=== PATIENT | female | born 1945 | race Caucasian/White ===

== ENCOUNTER 2020-01-11 22:32 | Inpatient (IN) ==
[2020-01-12] MEDS ORDERED: Ondansetron 4 MG/2 ML VIAL IVP PRN (03:18)
[2020-01-12] MEDS ORDERED: Naloxone 0.4 MG/ML INJ IVP PRN (03:18)
[2020-01-12] MEDS ORDERED: Dexamethasone 4 MG/ML VIAL IVP SCH (03:21)
[2020-01-12] MEDS ORDERED: Dextrose Gel 15 GM/37.5 ML TUBE PO PRN ×2 (04:00)
[2020-01-12] MEDS ORDERED: *HR* Dextrose 50 % in Water (Vial) 50 ML VIAL IVP PRN (04:00)
[2020-01-12] MEDS ORDERED: D5% in Water 1,000 ML IVC PRN (04:00)
[2020-01-12] MEDS: Ipratropium 1 PUFF INHALER IH SCH ×5 (04:21→19:43)
[2020-01-12] MEDS: Azithromycin 500 MG in 0.9 % Sodium Chloride 250 ML IVPB SCH (04:41)
[2020-01-12] MEDS: Furosemide 40 MG/4 ML VIAL IVP SCH ×2 (04:41→18:04)
[2020-01-12 04:43] LABS: Hematocrit 39.1 % (35.3-44.9); Hemoglobin 12.5 g/dL (11.5-15.4); Mean Corpuscular Hemoglobin 30.3 pg (28.0-33.3); Mean Corpuscular Volume 94.7 fL (83.0-100.0); Monocytes # 0.3 K/mcL (0.0-1.3); Platelet Count 238 K/mcL (140-400); Red Blood Count 4.13 M/mcL (3.82-4.97); Red Cell Distribution Width 14.4 % (11.5-14.5); White Blood Count 8.5 K/mcL (4.3-11.1)
[2020-01-12 04:55] LABS: INR 1.2; Prothrombin Time 13.3 Seconds (9.4-12.1)
[2020-01-12 04:59] LABS: BUN/Creatinine Ratio 28 (6-26); Blood Urea Nitrogen 21 mg/dL (8-23); Calcium 8.4 mg/dL (8.6-10.3); Carbon Dioxide 25 mEq/L (23-29); Chloride 104 mEq/L (98-107); Glucose 217 mg/dL (70-105); Magnesium 1.9 mg/dL (1.6-2.6); Osmolality,Calculated 296 (280-300); Sodium 138 mEq/L (136-145); eGFR For African Americans > 60 (> 60); eGFR For Non-African Americans > 60 (> 60)
[2020-01-12 05:10] LABS: Alanine Aminotransferase 44 Units/L (7-52); Albumin 3.1 g/dL (3.5-5.7); Alkaline Phosphatase 42 Units/L (34-104); Aspartate Amino Transferase 32 Units/L (13-39); Bilirubin,Direct 0.2 mg/dL (0.0-0.2); Bilirubin,Indirect 0.4 mg/dL (0.0-1.0); Bilirubin,Total 0.6 mg/dL (0.3-1.0); Globulin 3.1 g/dL (2.4-3.5); Total Protein 6.2 g/dL (6.4-8.9)
[2020-01-12 05:29] LABS: Lymphocytes # 0.5 K/mcL (0.6-4.6); Neutrophils # 7.5 K/mcL (1.6-8.9); Platelet Estimate Normal (Normal)
[2020-01-12] MEDS ORDERED: *HR* Enoxaparin 40 MG/0.4 ML SYRINGE SQ SCH (07:00)
[2020-01-12] MEDS: Insulin LISPRO 300 UNITS/3 ML VIAL SQ SCH ×4 (08:00→22:30)
[2020-01-12] MEDS: cefTRIAXone 1,000 MG in Water for inj. (sterile) 10 ML IVP SCH (08:01)
[2020-01-12 10:19] LABS: C-Reactive Protein 196 mg/L (Less than 10); Lactate Dehydrogenase 271 Units/L (140-271)
[2020-01-12 10:37] LABS: Ferritin 261 ng/mL (10-120)
[2020-01-12] MEDS: Dexamethasone Sodium Phos/PF 10 MG/ML VIAL IVP SCH (11:37)
[2020-01-12] MEDS ORDERED: 0.9 % Sodium Chloride 250 ML ONE (16:00)
[2020-01-12] MEDS ORDERED: Famotidine 20 MG TABLET PO PRN (16:54)
[2020-01-12] MEDS ORDERED: Acetaminophen 325 MG TABLET PO PRN (17:31)
[2020-01-12] MEDS: *HR* Enoxaparin 40 MG/0.4 ML SYRINGE SQ SCH (18:04)
[2020-01-12] MEDS: Budesonide/Formoterol 160/4.5 1 PUFF INH IH SCH (19:43)
[2020-01-12] MEDS: QUEtiapine Fumarate 100 MG TABLET PO SCH (20:06)
[2020-01-12] MEDS: *HR* LORazepam 0.5 MG TABLET PO SCH (20:07)
[2020-01-12] MEDS: GuaiFENesin/Dextromethorphan TABLET PO SCH (20:08)
[2020-01-12] MEDS: Pregabalin 75 MG CAPSULE PO SCH (20:08)
[2020-01-12] MEDS: traZODone 50 MG TABLET PO SCH (20:08)
[2020-01-13] MEDS: Ipratropium 1 PUFF INHALER IH SCH ×7 (00:01→23:59)
[2020-01-13] MEDS: Azithromycin 500 MG in 0.9 % Sodium Chloride 250 ML IVPB SCH (04:04)
[2020-01-13] MEDS: *HR* Enoxaparin 40 MG/0.4 ML SYRINGE SQ SCH ×2 (05:07→16:42)
[2020-01-13] MEDS: Budesonide/Formoterol 160/4.5 1 PUFF INH IH SCH ×2 (07:48→20:16)
[2020-01-13 07:50] LABS: Basophils # 0.1 K/mcL (0.0-0.2); Basophils % 0.7 %; Eosinophils % 0.2 %; Hematocrit 38.1 % (35.3-44.9); Hemoglobin 11.9 g/dL (11.5-15.4); Immature Granulocytes % 3.2 % (0-4); Lymphocytes # 1.6 K/mcL (0.6-4.6); Lymphocytes % 15.6 %; Mean Corpuscular HGB Conc 31.2 g/dL (31.6-35.5); Mean Corpuscular Hemoglobin 29.6 pg (28.0-33.3); Mean Corpuscular Volume 94.8 fL (83.0-100.0); Mean Platelet Volume 10.1 fL (9.4-12.4); Monocytes # 0.4 K/mcL (0.0-1.3); Monocytes % 3.7 %; Neutrophils # 7.7 K/mcL (1.6-8.9); Platelet Count 261 K/mcL (140-400); Red Blood Count 4.02 M/mcL (3.82-4.97); Red Cell Distribution Width 14.4 % (11.5-14.5); Segmented Neutrophils % 76.6 %; White Blood Count 10.1 K/mcL (4.3-11.1)
[2020-01-13] MEDS: Aspirin Enteric Coated 81 MG Tablet PO SCH (08:02)
[2020-01-13] MEDS: GuaiFENesin/Dextromethorphan TABLET PO SCH ×2 (08:02→20:10)
[2020-01-13] MEDS: Cyanocobalamin (B-12) 1,000 MCG TABLET PO SCH (08:02)
[2020-01-13] MEDS: Cholecalciferol (D-3) 1,000 UNIT (25MCG) TABLET PO SCH (08:02)
[2020-01-13] MEDS: modafiniL 100 MG TABLET PO SCH (08:03)
[2020-01-13] MEDS: Venlafaxine XR (24 HR) 37.5 MG CAP.ER.24H PO SCH (08:03)
[2020-01-13] MEDS: Venlafaxine XR (24 HR) 150 MG CAP.ER.24H PO SCH (08:04)
[2020-01-13] MEDS: *HR* LORazepam 0.5 MG TABLET PO SCH ×3 (08:05→20:13)
[2020-01-13] MEDS: Loratadine 10 MG TABLET PO SCH (08:05)
[2020-01-13] MEDS: Dexamethasone Sodium Phos/PF 10 MG/ML VIAL IVP SCH (08:07)
[2020-01-13] MEDS: Furosemide 40 MG/4 ML VIAL IVP SCH ×2 (08:09→16:39)
[2020-01-13] MEDS: cefTRIAXone 1,000 MG in Water for inj. (sterile) 10 ML IVP SCH (08:09)
[2020-01-13] MEDS: Pregabalin 75 MG CAPSULE PO SCH ×2 (08:12→20:10)
[2020-01-13] MEDS: Insulin LISPRO 300 UNITS/3 ML VIAL SQ SCH ×4 (08:13→20:12)
[2020-01-13] MEDS: Insulin DETEMIR 100 UNIT/ML X5UNITS SQ SCH (08:25)
[2020-01-13 08:30] LABS: Ferritin 271 ng/mL (10-120)
[2020-01-13 08:56] LABS: Alanine Aminotransferase 43 Units/L (7-52); Albumin 3.1 g/dL (3.5-5.7); Albumin/Globulin Ratio 0.9 (1.1-2.2); Alkaline Phosphatase 40 Units/L (34-104); Aspartate Amino Transferase 33 Units/L (13-39); BUN/Creatinine Ratio 33 (6-26); Bilirubin,Total 0.6 mg/dL (0.3-1.0); Blood Urea Nitrogen 28 mg/dL (8-23); Calcium 8.9 mg/dL (8.6-10.3); Carbon Dioxide 30 mEq/L (23-29); Chloride 103 mEq/L (98-107); Globulin 3.3 g/dL (2.4-3.5); Glucose 102 mg/dL (70-105); Lactate Dehydrogenase 250 Units/L (140-271); Magnesium 2.1 mg/dL (1.6-2.6); Osmolality,Calculated 302 (280-300); Phosphorous 4.1 mg/dL (2.7-4.5); Potassium 3.4 mEq/L (3.5-5.1); Sodium 143 mEq/L (136-145); Total Protein 6.4 g/dL (6.4-8.9); eGFR For African Americans > 60 (> 60); eGFR For Non-African Americans > 60 (> 60)
[2020-01-13] MEDS ORDERED: (Mirabegron [Myrbetriq] 25 MG) PO SCH (09:00)
[2020-01-13 09:16] LABS: Estimated Average Glucose 157 mg/dl
[2020-01-13 09:27] LABS: C-Reactive Protein 128 mg/L (Less than 10)
[2020-01-13] MEDS ORDERED: 0.9 % Sodium Chloride 250 ML ONE (13:36)
[2020-01-13] MEDS: traZODone 50 MG TABLET PO SCH (20:10)
[2020-01-13] MEDS: QUEtiapine Fumarate 100 MG TABLET PO SCH (20:10)
[2020-01-14] MEDS: Ipratropium 1 PUFF INHALER IH SCH ×5 (03:38→20:06)
[2020-01-14 04:44] LABS: Basophils # 0.1 K/mcL (0.0-0.2); Basophils % 0.6 %; Hemoglobin 11.9 g/dL (11.5-15.4); Immature Granulocytes % 3.6 % (0-4); Lymphocytes # 0.8 K/mcL (0.6-4.6); Lymphocytes % 9.4 %; Mean Corpuscular HGB Conc 32.2 g/dL (31.6-35.5); Mean Corpuscular Hemoglobin 30.6 pg (28.0-33.3); Mean Corpuscular Volume 95.1 fL (83.0-100.0); Mean Platelet Volume 9.6 fL (9.4-12.4); Monocytes # 0.5 K/mcL (0.0-1.3); Monocytes % 5.5 %; Neutrophils # 6.8 K/mcL (1.6-8.9); Platelet Count 286 K/mcL (140-400); Red Blood Count 3.89 M/mcL (3.82-4.97); Red Cell Distribution Width 14.2 % (11.5-14.5); Segmented Neutrophils % 80.9 %; White Blood Count 8.4 K/mcL (4.3-11.1)
[2020-01-14] MEDS: *HR* Enoxaparin 40 MG/0.4 ML SYRINGE SQ SCH ×2 (05:08→16:27)
[2020-01-14 05:09] LABS: Alanine Aminotransferase 44 Units/L (7-52); Albumin 3.4 g/dL (3.5-5.7); Albumin/Globulin Ratio 0.9 (1.1-2.2); Alkaline Phosphatase 43 Units/L (34-104); Aspartate Amino Transferase 26 Units/L (13-39); BUN/Creatinine Ratio 38 (6-26); Bilirubin,Total 0.5 mg/dL (0.3-1.0); Blood Urea Nitrogen 35 mg/dL (8-23); C-Reactive Protein 116 mg/L (Less than 10); Calcium 8.9 mg/dL (8.6-10.3); Carbon Dioxide 31 mEq/L (23-29); Chloride 99 mEq/L (98-107); Globulin 3.6 g/dL (2.4-3.5); Glucose 175 mg/dL (70-105); Lactate Dehydrogenase 210 Units/L (140-271); Magnesium 2.2 mg/dL (1.6-2.6); Osmolality,Calculated 300 (280-300); Phosphorous 4.2 mg/dL (2.7-4.5); Potassium 3.8 mEq/L (3.5-5.1); Sodium 139 mEq/L (136-145); eGFR For African Americans > 60 (> 60); eGFR For Non-African Americans > 60 (> 60)
[2020-01-14 05:18] LABS: Ferritin 260 ng/mL (10-120)
[2020-01-14] MEDS: Aspirin Enteric Coated 81 MG Tablet PO SCH (08:00)
[2020-01-14] MEDS: GuaiFENesin/Dextromethorphan TABLET PO SCH ×2 (08:01→20:11)
[2020-01-14] MEDS: Venlafaxine XR (24 HR) 37.5 MG CAP.ER.24H PO SCH (08:01)
[2020-01-14] MEDS: Cyanocobalamin (B-12) 1,000 MCG TABLET PO SCH (08:01)
[2020-01-14] MEDS: Venlafaxine XR (24 HR) 150 MG CAP.ER.24H PO SCH (08:01)
[2020-01-14] MEDS: Cholecalciferol (D-3) 1,000 UNIT (25MCG) TABLET PO SCH (08:02)
[2020-01-14] MEDS: Loratadine 10 MG TABLET PO SCH (08:03)
[2020-01-14] MEDS: Pregabalin 75 MG CAPSULE PO SCH ×2 (08:03→20:12)
[2020-01-14] MEDS: modafiniL 100 MG TABLET PO SCH (08:03)
[2020-01-14] MEDS: *HR* LORazepam 0.5 MG TABLET PO SCH ×3 (08:03→20:12)
[2020-01-14] MEDS: Dexamethasone Sodium Phos/PF 10 MG/ML VIAL IVP SCH (08:04)
[2020-01-14] MEDS: Budesonide/Formoterol 160/4.5 1 PUFF INH IH SCH ×2 (08:05→20:07)
[2020-01-14] MEDS: Insulin LISPRO 300 UNITS/3 ML VIAL SQ SCH ×4 (08:05→21:29)
[2020-01-14] MEDS: Insulin DETEMIR 100 UNIT/ML X5UNITS SQ SCH (08:14)
[2020-01-14] MEDS: Furosemide 40 MG/4 ML VIAL IVP SCH (08:16)
[2020-01-14] MEDS ORDERED: polyethylene glycoL 3350 17 GM POWD.PACK PO PRN (16:55)
[2020-01-14] MEDS: QUEtiapine Fumarate 100 MG TABLET PO SCH (20:12)
[2020-01-14] MEDS: traZODone 50 MG TABLET PO SCH (20:12)
[2020-01-15] MEDS: Ipratropium 1 PUFF INHALER IH SCH ×7 (00:10→23:33)
[2020-01-15] MEDS: *HR* Enoxaparin 40 MG/0.4 ML SYRINGE SQ SCH ×2 (05:17→16:17)
[2020-01-15] MEDS: Budesonide/Formoterol 160/4.5 1 PUFF INH IH SCH ×2 (08:12→20:23)
[2020-01-15] MEDS: Insulin LISPRO 300 UNITS/3 ML VIAL SQ SCH ×4 (09:40→21:08)
[2020-01-15] MEDS: Cholecalciferol (D-3) 1,000 UNIT (25MCG) TABLET PO SCH (09:47)
[2020-01-15] MEDS: Aspirin Enteric Coated 81 MG Tablet PO SCH (09:47)
[2020-01-15] MEDS: Pregabalin 75 MG CAPSULE PO SCH ×2 (09:49→21:02)
[2020-01-15] MEDS: GuaiFENesin/Dextromethorphan TABLET PO SCH ×2 (09:49→21:01)
[2020-01-15] MEDS: Cyanocobalamin (B-12) 1,000 MCG TABLET PO SCH (09:49)
[2020-01-15] MEDS: *HR* LORazepam 0.5 MG TABLET PO SCH ×3 (09:49→21:02)
[2020-01-15] MEDS: Loratadine 10 MG TABLET PO SCH (09:49)
[2020-01-15] MEDS: Venlafaxine XR (24 HR) 37.5 MG CAP.ER.24H PO SCH (09:49)
[2020-01-15] MEDS: Venlafaxine XR (24 HR) 150 MG CAP.ER.24H PO SCH (09:51)
[2020-01-15] MEDS: Furosemide 40 MG/4 ML VIAL IVP SCH (09:52)
[2020-01-15] MEDS: Dexamethasone Sodium Phos/PF 10 MG/ML VIAL IVP SCH (09:52)
[2020-01-15] MEDS: Insulin DETEMIR 100 UNIT/ML X5UNITS SQ SCH (09:54)
[2020-01-15] MEDS: modafiniL 100 MG TABLET PO SCH (09:54)
[2020-01-15 17:10] LABS: Basophils # 0.1 K/mcL (0.0-0.2); Basophils % 0.4 %; Hematocrit 40.1 % (35.3-44.9); Immature Granulocytes % 2.9 % (0-4); Lymphocytes # 0.6 K/mcL (0.6-4.6); Lymphocytes % 4.2 %; Mean Corpuscular HGB Conc 32.4 g/dL (31.6-35.5); Mean Corpuscular Hemoglobin 30.3 pg (28.0-33.3); Mean Corpuscular Volume 93.5 fL (83.0-100.0); Mean Platelet Volume 9.8 fL (9.4-12.4); Monocytes # 0.3 K/mcL (0.0-1.3); Monocytes % 2.1 %; Neutrophils # 12.3 K/mcL (1.6-8.9); Platelet Count 352 K/mcL (140-400); Red Blood Count 4.29 M/mcL (3.82-4.97); Red Cell Distribution Width 14.1 % (11.5-14.5); Segmented Neutrophils % 90.4 %
[2020-01-15 17:11] LABS: White Blood Count 13.6 K/mcL (4.3-11.1)
[2020-01-15 17:26] LABS: BUN/Creatinine Ratio 40 (6-26); Blood Urea Nitrogen 38 mg/dL (8-23); Calcium 9.4 mg/dL (8.6-10.3); Carbon Dioxide 29 mEq/L (23-29); Chloride 96 mEq/L (98-107); Glucose 288 mg/dL (70-105); Osmolality,Calculated 300 (280-300); Potassium 4.6 mEq/L (3.5-5.1); Sodium 135 mEq/L (136-145); eGFR For African Americans > 60 (> 60); eGFR For Non-African Americans 57 (> 60)
[2020-01-15] MEDS: traZODone 50 MG TABLET PO SCH (21:01)
[2020-01-15] MEDS: QUEtiapine Fumarate 100 MG TABLET PO SCH (21:02)
[2020-01-16] MEDS: Ipratropium 1 PUFF INHALER IH SCH ×6 (03:52→23:29)
[2020-01-16 04:50] LABS: Hematocrit 38.3 % (35.3-44.9); Hemoglobin 12.6 g/dL (11.5-15.4); Mean Corpuscular HGB Conc 32.9 g/dL (31.6-35.5); Mean Corpuscular Volume 94.3 fL (83.0-100.0); Mean Platelet Volume 9.8 fL (9.4-12.4); Platelet Count 329 K/mcL (140-400); Red Blood Count 4.06 M/mcL (3.82-4.97); White Blood Count 10.5 K/mcL (4.3-11.1)
[2020-01-16 04:56] LABS: BUN/Creatinine Ratio 41 (6-26); Blood Urea Nitrogen 34 mg/dL (8-23); Calcium 9.5 mg/dL (8.6-10.3); Carbon Dioxide 28 mEq/L (23-29); Chloride 102 mEq/L (98-107); Glucose 120 mg/dL (70-105); Osmolality,Calculated 295 (280-300); Potassium 4.2 mEq/L (3.5-5.1); Sodium 138 mEq/L (136-145); eGFR For African Americans > 60 (> 60); eGFR For Non-African Americans > 60 (> 60)
[2020-01-16] MEDS: *HR* Enoxaparin 40 MG/0.4 ML SYRINGE SQ SCH ×2 (05:41→18:04)
[2020-01-16] MEDS: Budesonide/Formoterol 160/4.5 1 PUFF INH IH SCH ×2 (08:35→19:57)
[2020-01-16] MEDS: GuaiFENesin/Dextromethorphan TABLET PO SCH ×2 (08:36→20:16)
[2020-01-16] MEDS: Cyanocobalamin (B-12) 1,000 MCG TABLET PO SCH (08:36)
[2020-01-16] MEDS: Aspirin Enteric Coated 81 MG Tablet PO SCH (08:36)
[2020-01-16] MEDS: Pregabalin 75 MG CAPSULE PO SCH ×2 (08:36→20:17)
[2020-01-16] MEDS: Venlafaxine XR (24 HR) 150 MG CAP.ER.24H PO SCH (08:37)
[2020-01-16] MEDS: Venlafaxine XR (24 HR) 37.5 MG CAP.ER.24H PO SCH (08:37)
[2020-01-16] MEDS: *HR* LORazepam 0.5 MG TABLET PO SCH ×3 (08:37→20:18)
[2020-01-16] MEDS: Loratadine 10 MG TABLET PO SCH (08:37)
[2020-01-16] MEDS: Cholecalciferol (D-3) 1,000 UNIT (25MCG) TABLET PO SCH (08:37)
[2020-01-16] MEDS: Dexamethasone Sodium Phos/PF 10 MG/ML VIAL IVP SCH (08:38)
[2020-01-16] MEDS: Insulin DETEMIR 100 UNIT/ML X5UNITS SQ SCH (08:43)
[2020-01-16] MEDS: Insulin LISPRO 300 UNITS/3 ML VIAL SQ SCH ×4 (08:46→21:48)
[2020-01-16] MEDS: modafiniL 100 MG TABLET PO SCH (08:48)
[2020-01-16] MEDS ORDERED: Furosemide 20 MG TABLET PO SCH (09:00)
[2020-01-16] MEDS: Menthol 9.1 MG LOZENGE PO PRN (14:51)
[2020-01-16] MEDS: traZODone 50 MG TABLET PO SCH (20:16)
[2020-01-16] MEDS: QUEtiapine Fumarate 100 MG TABLET PO SCH (20:16)
[2020-01-16 22:42] LABS: Adenovirus Not Detected (Not Detect); Coronavirus 229E Not Detected (Not Detect); Coronavirus HKU1 Not Detected (Not Detect); Coronavirus NL63 Not Detected (Not Detect); Coronavirus OC43 Not Detected (Not Detect)
[2020-01-16 22:44] LABS: Bordetella Pertussis Not Detected (Not Detect); Chlamydophila pneumoniae Not Detected (Not Detect); Human Metapneumovirus Not Detected (Not Detect); Human Rhinovirus/Enterovirus Not Detected (Not Detect); Influenza A Subtype 2009 H1 Not Detected (Not Detect); Influenza B Not Detected (Not Detect); Mycoplasma pneumoniae Not Detected (Not Detect); Parainfluenza Virus 1 Not Detected (Not Detect); Parainfluenza Virus 2 Not Detected (Not Detect); Parainfluenza Virus 3 Not Detected (Not Detect); Parainfluenza Virus 4 Not Detected (Not Detect); Respiratory Syncytial Virus Not Detected (Not Detect); SARS-CoV-2 DETECTED (Not Detect)
[2020-01-17] MEDS: Ipratropium 1 PUFF INHALER IH SCH ×6 (03:40→23:20)
[2020-01-17] MEDS: *HR* Enoxaparin 40 MG/0.4 ML SYRINGE SQ SCH ×2 (05:32→16:24)
[2020-01-17 06:39] LABS: Hemoglobin 12.7 g/dL (11.5-15.4); Mean Corpuscular HGB Conc 31.8 g/dL (31.6-35.5); Mean Corpuscular Hemoglobin 30.7 pg (28.0-33.3); Mean Corpuscular Volume 96.6 fL (83.0-100.0); Mean Platelet Volume 9.9 fL (9.4-12.4); Platelet Count 341 K/mcL (140-400); Red Blood Count 4.14 M/mcL (3.82-4.97); Red Cell Distribution Width 14.3 % (11.5-14.5); White Blood Count 11.3 K/mcL (4.3-11.1)
[2020-01-17 06:59] LABS: BUN/Creatinine Ratio 41 (6-26); Blood Urea Nitrogen 35 mg/dL (8-23); Calcium 9.3 mg/dL (8.6-10.3); Carbon Dioxide 27 mEq/L (23-29); Chloride 102 mEq/L (98-107); Glucose 131 mg/dL (70-105); Magnesium 2.3 mg/dL (1.6-2.6); Osmolality,Calculated 296 (280-300); Potassium 3.8 mEq/L (3.5-5.1); Sodium 138 mEq/L (136-145); eGFR For African Americans > 60 (> 60); eGFR For Non-African Americans > 60 (> 60)
[2020-01-17] MEDS: Insulin LISPRO 300 UNITS/3 ML VIAL SQ SCH ×4 (07:30→21:08)
[2020-01-17] MEDS: Dexamethasone Sodium Phos/PF 10 MG/ML VIAL IVP SCH (07:40)
[2020-01-17] MEDS: Insulin DETEMIR 100 UNIT/ML X5UNITS SQ SCH (07:40)
[2020-01-17] MEDS: Venlafaxine XR (24 HR) 150 MG CAP.ER.24H PO SCH (07:41)
[2020-01-17] MEDS: GuaiFENesin/Dextromethorphan TABLET PO SCH ×2 (07:41→20:10)
[2020-01-17] MEDS: Cholecalciferol (D-3) 1,000 UNIT (25MCG) TABLET PO SCH (07:41)
[2020-01-17] MEDS: modafiniL 100 MG TABLET PO SCH (07:41)
[2020-01-17] MEDS: Furosemide 20 MG TABLET PO SCH (07:41)
[2020-01-17] MEDS: Venlafaxine XR (24 HR) 37.5 MG CAP.ER.24H PO SCH (07:42)
[2020-01-17] MEDS: Pregabalin 75 MG CAPSULE PO SCH ×2 (07:42→20:10)
[2020-01-17] MEDS: Aspirin Enteric Coated 81 MG Tablet PO SCH (07:42)
[2020-01-17] MEDS: Loratadine 10 MG TABLET PO SCH (07:42)
[2020-01-17] MEDS: Cyanocobalamin (B-12) 1,000 MCG TABLET PO SCH (07:42)
[2020-01-17] MEDS: *HR* LORazepam 0.5 MG TABLET PO SCH ×3 (07:42→20:10)
[2020-01-17] MEDS: Budesonide/Formoterol 160/4.5 1 PUFF INH IH SCH ×2 (08:21→20:14)
[2020-01-17] MEDS: Menthol 9.1 MG LOZENGE PO PRN (12:45)
[2020-01-17] MEDS: traZODone 50 MG TABLET PO SCH (20:10)
[2020-01-17] MEDS: QUEtiapine Fumarate 100 MG TABLET PO SCH (20:10)
[2020-01-18] MEDS: Ipratropium 1 PUFF INHALER IH SCH ×5 (03:38→20:11)
[2020-01-18] MEDS: *HR* Enoxaparin 40 MG/0.4 ML SYRINGE SQ SCH ×2 (05:10→17:45)
[2020-01-18] MEDS: Budesonide/Formoterol 160/4.5 1 PUFF INH IH SCH ×2 (07:37→20:11)
[2020-01-18] MEDS: Dexamethasone Sodium Phos/PF 10 MG/ML VIAL IVP SCH (08:08)
[2020-01-18] MEDS: Cholecalciferol (D-3) 1,000 UNIT (25MCG) TABLET PO SCH (08:09)
[2020-01-18] MEDS: Venlafaxine XR (24 HR) 37.5 MG CAP.ER.24H PO SCH (08:09)
[2020-01-18] MEDS: Pregabalin 75 MG CAPSULE PO SCH ×2 (08:09→22:22)
[2020-01-18] MEDS: GuaiFENesin/Dextromethorphan TABLET PO SCH ×2 (08:10→22:21)
[2020-01-18] MEDS: modafiniL 100 MG TABLET PO SCH (08:10)
[2020-01-18] MEDS: Venlafaxine XR (24 HR) 150 MG CAP.ER.24H PO SCH (08:10)
[2020-01-18] MEDS: Furosemide 20 MG TABLET PO SCH (08:10)
[2020-01-18] MEDS: Aspirin Enteric Coated 81 MG Tablet PO SCH (08:11)
[2020-01-18] MEDS: Loratadine 10 MG TABLET PO SCH (08:11)
[2020-01-18] MEDS: Cyanocobalamin (B-12) 1,000 MCG TABLET PO SCH (08:11)
[2020-01-18] MEDS: *HR* LORazepam 0.5 MG TABLET PO SCH ×3 (08:12→22:21)
[2020-01-18] MEDS: Insulin DETEMIR 100 UNIT/ML X5UNITS SQ SCH (08:14)
[2020-01-18] MEDS: Insulin LISPRO 300 UNITS/3 ML VIAL SQ SCH ×4 (08:38→22:18)
[2020-01-18 12:21] LABS: Hematocrit 43.6 % (35.3-44.9); Hemoglobin 13.6 g/dL (11.5-15.4); Mean Corpuscular HGB Conc 31.2 g/dL (31.6-35.5); Mean Corpuscular Hemoglobin 29.8 pg (28.0-33.3); Mean Corpuscular Volume 95.6 fL (83.0-100.0); Mean Platelet Volume 10.1 fL (9.4-12.4); Platelet Count 383 K/mcL (140-400); Red Blood Count 4.56 M/mcL (3.82-4.97); Red Cell Distribution Width 14.5 % (11.5-14.5)
[2020-01-18 12:22] LABS: White Blood Count 17.2 K/mcL (4.3-11.1)
[2020-01-18 12:39] LABS: BUN/Creatinine Ratio 40 (6-26); Blood Urea Nitrogen 38 mg/dL (8-23); Calcium 9.4 mg/dL (8.6-10.3); Carbon Dioxide 28 mEq/L (23-29); Chloride 98 mEq/L (98-107); Glucose 184 mg/dL (70-105); Osmolality,Calculated 294 (280-300); Potassium 4.2 mEq/L (3.5-5.1); Sodium 135 mEq/L (136-145); eGFR For African Americans > 60 (> 60); eGFR For Non-African Americans 57 (> 60)
[2020-01-18] MEDS: traZODone 50 MG TABLET PO SCH (22:21)
[2020-01-18] MEDS: QUEtiapine Fumarate 100 MG TABLET PO SCH (22:22)
[2020-01-19] MEDS: Ipratropium 1 PUFF INHALER IH SCH ×4 (00:17→11:01)
[2020-01-19 01:52] LABS: Hematocrit 39.9 % (35.3-44.9); Hemoglobin 12.5 g/dL (11.5-15.4); Mean Corpuscular HGB Conc 31.3 g/dL (31.6-35.5); Mean Corpuscular Hemoglobin 29.9 pg (28.0-33.3); Mean Corpuscular Volume 95.5 fL (83.0-100.0); Mean Platelet Volume 9.9 fL (9.4-12.4); Platelet Count 350 K/mcL (140-400); Red Blood Count 4.18 M/mcL (3.82-4.97); Red Cell Distribution Width 14.1 % (11.5-14.5); White Blood Count 12.9 K/mcL (4.3-11.1)
[2020-01-19 02:08] LABS: BUN/Creatinine Ratio 41 (6-26); Blood Urea Nitrogen 36 mg/dL (8-23); Calcium 9.2 mg/dL (8.6-10.3); Carbon Dioxide 29 mEq/L (23-29); Chloride 99 mEq/L (98-107); Glucose 123 mg/dL (70-105); Osmolality,Calculated 292 (280-300); Sodium 136 mEq/L (136-145); eGFR For African Americans > 60 (> 60); eGFR For Non-African Americans > 60 (> 60)
[2020-01-19] MEDS: *HR* Enoxaparin 40 MG/0.4 ML SYRINGE SQ SCH (05:34)
[2020-01-19 07:13] VITALS: BP 137/73
[2020-01-19] MEDS: Budesonide/Formoterol 160/4.5 1 PUFF INH IH SCH (07:43)
[2020-01-19] MEDS ORDERED: Dexamethasone Sodium Phos/PF 10 MG/ML VIAL IVP SCH (09:00)
[2020-01-19] MEDS: Venlafaxine XR (24 HR) 150 MG CAP.ER.24H PO SCH (09:38)
[2020-01-19] MEDS: Cyanocobalamin (B-12) 1,000 MCG TABLET PO SCH (09:38)
[2020-01-19] MEDS: GuaiFENesin/Dextromethorphan TABLET PO SCH (09:38)
[2020-01-19] MEDS: Pregabalin 75 MG CAPSULE PO SCH (09:38)
[2020-01-19] MEDS: Aspirin Enteric Coated 81 MG Tablet PO SCH (09:38)
[2020-01-19] MEDS: Furosemide 20 MG TABLET PO SCH (09:39)
[2020-01-19] MEDS: modafiniL 100 MG TABLET PO SCH (09:39)
[2020-01-19] MEDS: *HR* LORazepam 0.5 MG TABLET PO SCH (09:40)
[2020-01-19] MEDS: Loratadine 10 MG TABLET PO SCH (09:40)
[2020-01-19] MEDS: Insulin DETEMIR 100 UNIT/ML X5UNITS SQ SCH (09:40)
[2020-01-19] MEDS: Venlafaxine XR (24 HR) 37.5 MG CAP.ER.24H PO SCH (09:40)
[2020-01-19] MEDS: Cholecalciferol (D-3) 1,000 UNIT (25MCG) TABLET PO SCH (09:41)
[2020-01-19] MEDS: Insulin LISPRO 300 UNITS/3 ML VIAL SQ SCH (09:42)
== END 2020-01-19 13:16 | disposition home health service (06) | DRG 177 ==
LOC: 2NENU → SUATTDRO 01-12 01:49
PROVIDERS: ADMIT Pharmacist; ATTEND Internal Medicine